=== PATIENT | female | born 1980 | race Asian ===

== ENCOUNTER 2022-06-25 07:55 | Day surgery (SDC) | payer BC, OTHER ==
[2022-06-23 15:18] VITALS: BMI 27.3
[2022-06-25 08:49] LABS: BHCG - Serum Negative (NEGATIVE); Pregs Control Background? CLEAR/WHITE (CLR/WHITE); Pregs Control Bar Appear? YES (CONTROL BAR)
[2022-06-25] MEDS ORDERED: PROPOFOL 20 ML ONE (09:07)
[2022-06-25] MEDS ORDERED: Rocuronium Bromide 10 MG/ML (10ML VIAL) ONE (09:07)
[2022-06-25] MEDS ORDERED: Fentanyl 100 MCG/2 ML VIAL ONE (09:07)
[2022-06-25] MEDS ORDERED: Lidocaine 1% (PF) 30 ML VIAL ONE (09:07)
[2022-06-25] MEDS ORDERED: EPINEPHrine 1 MG/ML AMP ONE (09:11)
[2022-06-25] MEDS ORDERED: Bupivacaine PF 0.5% 30 ML VIAL ONE (09:12)
[2022-06-25] MEDS ORDERED: CEFAZOLIN 2 GM VIAL ONE (09:18)
[2022-06-25] MEDS ORDERED: Dexamethasone 20 MG/5 ML VIAL ONE (09:36)
[2022-06-25] MEDS ORDERED: Ondansetron PF 4 MG/2 ML Vial ONE (09:36)
[2022-06-25] MEDS ORDERED: HYDROcodone/Acetaminophen 5/325 mg Tablet PO PRN (10:13)
[2022-06-25] MEDS ORDERED: Acetaminophen 500 MG TAB ONE (10:32)
[2022-06-25] MEDS ORDERED: Acetaminophen 500 MG TAB PO SCH (11:00)
== END 2022-06-25 11:20 | disposition home or self-care (01) ==
LOC: CSHSDC 07:55
PROVIDERS: ATTEND Surgery
PROC: 0HBT0ZZ Excision of Right Breast, Open Approach (ICD-10-PCS; principal; 2022-06-25)
DX: D24.1 Benign neoplasm of right breast (principal); R73.03 Prediabetes; I10 Essential (primary) hypertension
CPT/HCPCS: 36415; 84703; 88307; J0171; J1100; J2001; J2405; J2704; J3010; S0020

== ENCOUNTER 2023-05-11 09:24 | Outpatient (CLI) | payer BC | END 2023-05-11 09:25 | disposition home or self-care (01) | LOC: CSHRAD 09:24 | PROVIDERS: ATTEND Student in an Organized Health Care Education/Training Program | DX: Z31.41 Encounter for fertility testing (principal) | CPT/HCPCS: 58340; 74740 ==